=== PATIENT | female | born 1950 | race Two or more races ===

== ENCOUNTER 2024-08-26 11:38 | Emergency (ER) | payer MEDICARE, OTHER ==
[~2024-08-26] VITALS: Ht 177.8 cm; Wt 75.7 kg
--- NOTE | 2024-08-26 12:08 | ECG ---
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
--- NOTE | 2024-08-26 12:18 | ED.PDOC ---
History of Present Illness HPI Comments 74-year-old female presents with a chief complaint of muscle pain x onset Wednesday. Patient states that on Wednesday she had a vaso vagal episode and woke up on the floor. Patient reports that since then she has been having pain to the left ribcage area. Patient mentions that the pain is getting worse each day. Chief Complaint: Fall Injury Time Seen by MD: 11:56 Primary Care Provider: LILY Pennington Notes: Medications, Allergies Allergies: Coded Allergies: NO KNOWN ALLERGIES (Unverified , 08/26/24) Home Meds Active Scripts Ibuprofen Micronized (MOTRIN TABLET) 600 Mg Tb, 600 MG PO TID PRN for 3 Days, #9 TAB *Black box warning-NSAIDS can increase risk of MD & hypertension, GI irritation, ulceration, bleed, perferation. Do not use post cardiac surgery. Use short duration/lowest effective dose. 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 all MOBILITY MANAGER Hx Family History Family History: Reviewed,noncontributory to illness Social History Smoker: Non-Smoker Alcohol: Denies ETOH Use Drugs: Denies Drug Use Lives In: Home Constitutional: denies: chills, diaphoresis, fatigue, fever, malaise, sweats, weakness, others EENTM: denies: blurred vision, double vision, ear bleeding, ear discharge, ear drainage, ear pain, ear ringing, eye pain, eye redness, hearing loss, mouth pain, mouth swelling, nasal discharge, nose bleeding, nose congestion, nose pain, photophobia, tearing, throat pain, throat swelling, voice changes, others Respiratory: denies: cough, hemoptysis, orthopnea, SOB at rest, shortness of breath, SOB with excertion, stridor, wheezing, others Cardiovascular: denies: chest pain, dizzy spells, diaphoresis, Dyspnea on exertion, edema, irregular heart beat, left arm pain, lightheadedness, palpitations, PND, syncope, others Gastrointestinal: denies: abdomen distended, abdominal pain, blood streaked bowels, constipated, diarrhea, dysphagia, difficulty swallowing, hematemesis, melena, nausea, poor appetite, poor fluid intake, rectal bleeding, rectal pain, vomiting, others Genitourinary: denies: abnormal vagina bleeding, burning, dyspareunia, dysuria, flank pain, frequency, hematuria, incontinence, pain, , vagina discharge, urgency, others Neurological: denies: dizziness, fainting, headache, left sided numbness, left sided weakness, numbness, paresthesia, pre-existing deficit, right sided numbness, right sided weakness, seizure, speech problems, tingling, tremors, weakness, others Musculoskeletal: reports: muscle pain; denies: back pain, gout, joint pain, joint swelling, muscle stiffness, neck pain, others Integumetry: denies: bruises, change in color, change in hair/nails, dryness, laceration, lesions, lumps, rash, wounds, others Allergic/Immunocompromised: denies: Difficulty Healing, Frequent Infections, Hives, Itching, others Hematologic/Lymphatic: denies: anemia, blood clots, easy bleeding, easy bruising, swollen glands, others Endocrine: denies: excessive hunger, excessive sweating, excessive thirst, excessive urination, flushing, intolerance to cold, intolerance to heat, unexplained weight gain, unexplained weight loss, others Psychiatric: denies: anxiety, bipolar disorder, depression, hopeless, panic disorder, schizophrenia, sleepless, suicidal, others All Other Systems: Reviewed and Negative Physical Exam General Appearance: Moderate Distress, Normal HEENT: Normal ENT Inspection, Pharynx Normal, TMs Normal Neck: Full Range of Motion, Non-Tender, Normal, Normal Inspection Respiratory: Chest Non-Tender, Lungs Clear, No Accessory Muscle Use, No R espiratory Distress, Normal Breath Sounds Cardiovascular: No Edema, No JVD, No Murmur, No Gallop, Normal Peripheral Pulses, Regular Rate/Rhythm Breast Exam: Deferred Gastrointestinal: No Organomegaly, Non Tender, No Pulsatile Mass, Normal Bowel Sounds, Soft Genitalia: Deferred Pelvic: Deferred Rectal: Deferred Extremities: No calf tenderness, Normal capillary refill, Normal inspection, Normal range of motion, Non-tender, No pedal edema Musculoskeletal : Apperance: Normal Neurologic: Alert, 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 Was a procedure done?: No EKG EKG : Pulse Rate (adult): 69 [place]: Normal Cardiac Rhythm: NSR Block: None Hypertrophy: None ST: Normal Differential Dx Considerations may include: Muscle strain X-Ray, Labs, Meds, VS Vital Signs Date Time Temp Pulse Resp B/P (MAP) Pulse Ox O2 Delivery O2 Flow Rate FiO2 08/26/24 13:05 16 16 97 Room Air 08/26/24 13:05 97.8 68 16 135/74 (94) 97 97.8 08/26/24 12:18 69 08/26/24 12:00 69 08/26/24 11:56 97.7 79 18 143/71 (95) 99 97.7 Lab Test 08/26/24 12:42 08/26/24 12:02 Range/Units Troponin I High Sensitivity < 3 L </=34 ng/L POC Glucose 117 H 70-106 mg/dl Current Medications Medications (Trade) Dose Ordered Sig/Katerine Route Start Time Stop Time Status Last Admin Acetaminophen/ Hydrocodone Bitart ([place] 5/325MG Tab) 1 tab ONCE ONCE PO 08/26/24 12:30 08/26/24 12:31 DC 08/26/24 13:05 Patient alert. Complaining of rib pain. Vitals stable. Answering all questions. Possibly from trauma. Denies chest pain. Denies shortness a breath. No leg swelling. Heart rate within normal limits. Saturation pristine on room air. EKG reviewed does not show any acute changes. Chest x-ray reviewed does not show any acute changes. Rib series reviewed does not show any acute changes. Was given prescription of Motrin. Explained to the patient. Was told to follow up with her primary care physician. Was told to come back if there is any problem. Time of 1ST Reevaluation: 12:26 Reevaluation 1ST: Unchanged Patient Education/Counseling: Diagnosis, Treatment, Need For Follow Up Family Education/Counseling: Diagnosis, Treatment, Need For Follow Up SEPSIS Sepsis Screen Date sepsis recognized/suspect: Aug 26, 2024 Time Sepsis recognized/suspect: 1143 Recent Procedure: No On Antibiotic Therapy: No Respiratory Rate >20: No Heart Rate >90: No Temp<36 C (96.8 F) or >38.3 C: No SBP <90 or MAP <65 mmHG: No New Acute Mental Status Change: No Is the patient on CPAP, BIPAP,: No Physician Orders L Rib X Ray (08/26/24 12:16) Chest Portable (08/26/24 12:16) Vital Signs Date Time Temp Pulse Resp B/P (MAP) Pulse Ox O2 Delivery O2 Flow Rate FiO2 08/26/24 13:05 16 16 97 Room Air 08/26/24 13:05 97.8 68 16 135/74 (94) 97 97.8 08/26/24 12:18 69 08/26/24 12:00 69 08/26/24 11:56 97.7 79 18 143/71 (95) 99 97.7 Medications Medications Dose Ordered Sig/Katerine Route Start Time Stop Time Status Last Admin Dose Admin Acetaminophen/ Hydrocodone Bitart 1 tab ONCE ONCE PO 08/26/24 12:30 08/26/24 12:31 DC 08/26/24 13:05 Departure 1 Departure Time of Disposition: 12:38 Impression: Primary Impression: Pleurisy Additional Impression: Musculoskeletal pain Disposition: 01 HOME / SELF CARE / HOMELESS Condition: Good e-Prescriptions Ibuprofen Micronized (MOTRIN TABLET) 600 Mg Tb 600 MG PO TID PRN for 3 Days, #9 TAB *Black box warning-NSAIDS can increase risk of MD & hypertension, GI irritation, ulceration, bleed, perferation. Do not use post cardiac surgery. Use short duration/lowest effective dose. Prov: TESSA HERNANDEZ MD 08/26/24 Discharged With: Self Critical Care Note Critical Care Time?: No Stability Stability form required: No Heart Score Heart Score: Heart Score Response (Comments) Value History Slightly Suspicious 0 EKG Normal 0 Age >65 2 Risk Factors 1 or 2 risk factors 1 Troponin Normal limit 0 Total 3 I personally scribed for TESSA HERNANDEZ MD ([email or web address]) on 08/26/24 at 12:18. Electronically submitted by Mohsen Perez ([email or web address]). TESSA HERNANDEZ MD Aug 26, 2024 12:18
[2024-08-26] MEDS ORDERED: IBU600T PO (12:39)
[2024-08-26] MEDS: HYDROcodone-ACET 5/325MG TAB PO ONE (13:05)
--- NOTE | 2024-08-26 13:05 | DVH ---
FRONTAL CHEST AND LEFT RIB RADIOGRAPHS HISTORY: fall TECHNIQUE: Multiple views of the left ribs with frontal view of the chest. COMPARISON: None FINDINGS: The trachea is midline. The cardiac silhouette and mediastinum are within normal limits. No pneumothorax, pleural effusions, or consolidations. There is no evidence of an acute fracture, dislocation, blastic, or lytic lesions. No radiopaque foreign bodies. No superficial soft tissue abnormalities. Impression: 1. No evidence of an acute rib fracture. 2. No acute cardiopulmonary disease.
--- NOTE | 2024-08-26 13:12 | DVH ---
EXAM: XR Chest, 1 View CLINICAL INDICATION: sob TECHNIQUE: Frontal view of the chest. COMPARISON: No relevant prior studies available. FINDINGS: LUNGS AND PLEURAL SPACES: Unremarkable. No consolidation. No pneumothorax. HEART: Unremarkable. No cardiomegaly. MEDIASTINUM: Unremarkable. Normal mediastinal contour. BONES/JOINTS: Unremarkable. No acute fracture. OTHER FINDINGS: Comparison None. IMPRESSION: No acute cardiopulmonary process. HS:Y
[2024-08-26 14:18] VITALS: BP 133/74; TEMP 97.7
[2024-08-26 14:19] VITALS: PULSE 65; RESP 16; O2SAT 99
== END 2024-08-26 14:25 | disposition home or self-care (01) ==
LOC: ER 11:38
DX: R09.1 Pleurisy (principal); M79.18 Myalgia, other site
CPT/HCPCS: 36415; 71045; 71101; 82947; 82962; 84484; 93005